=== PATIENT | female | born 2000 | race Caucasian/White ===

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

== ENCOUNTER → 2018-08-10 18:07 | Outpatient (CLI) | payer BC, SELFPAY ==
[2018-08-19 08:53] LABS: Neisseria gonorrhoeae, NAA Negative (Negative)
== END ==
PROVIDERS: Visit Provider Nurse Practitioner Obstetrics & Gynecology
DX: R10.9 Unspecified abdominal pain (principal)
CPT/HCPCS: 87491; 87591

== ENCOUNTER → 2018-08-17 09:23 | Outpatient (CLI) | payer BC, SELFPAY ==
--- NOTE | 2018-08-17 09:26 | US_ITS ---
US transvaginal HISTORY: Pelvic pain ITS.REASON: US T/V -Pelvic pain ORDERING PHYSICIAN: Kory Bah MD PATIENT AGE: 18 years Comparison: None FINDINGS: The uterus is 7 x 3 x 4 cm with a combined endometrial thickness of 6 mm. The uterus has an unremarkable appearance. The left ovary is 5.2 x 2.5 x 3.9 cm and contains a 3.5 x 2.7 cm cyst along with small follicles. The right ovary is 4 x 3 x 2 cm and contains a 1.8 x 1 cm cyst and multiple small follicles. No cul-de-sac fluid evident. There is bilateral ovarian blood flow. IMPRESSION: Polycystic appearance of the right ovary with a 3.5 cm left ovarian cyst and a 1.8 cm right ovarian cyst
== END ==
PROVIDERS: PCP Family Medicine; Visit Provider Nurse Practitioner Obstetrics & Gynecology
DX: R10.2 Pelvic and perineal pain (principal)
CPT/HCPCS: 76830

== ENCOUNTER → 2019-06-28 16:55 | Outpatient (CLI) | payer BC, OTHER, SELFPAY ==
[2019-07-01 11:07] LABS: Neisseria gonorrhoeae, NAA Negative (Negative)
== END ==
PROVIDERS: Visit Provider Nurse Practitioner Obstetrics & Gynecology
DX: Z72.51 High risk heterosexual behavior (principal); N39.0 Urinary tract infection, site not specified
CPT/HCPCS: 87086; 87088; 87186; 87491; 87591

== ENCOUNTER → 2019-07-02 10:18 | Outpatient (CLI) | payer BC, OTHER, SELFPAY ==
--- NOTE | 2019-07-02 10:19 | US_ITS ---
PROCEDURE: US TRANSVAGINAL CLINICAL INDICATION: US T/V- Pelvic Pain, F/U on Ovarian Cyst Pelvic pain COMPARISON: TRANVAG US transvaginal from 08/17/2018 FINDINGS: UTERUS: 6.5 x 2.8 x 3.6 cm with a combined endometrial thickness of 5 mm. Nabothian cysts are present. The uterus is otherwise unremarkable. LEFT OVARY: 4 x 2 cm left ovarian cyst with multiple small follicles with a polycystic appearance of the left ovary. The volume of the left ovary is 17 mL. RIGHT OVARY: 5 x 2 x 2.8 cm with multiple follicles with a polycystic appearance. A septated 17 mm cyst is present in the right ovary. The right ovarian volume is 14 mL No cul-de-sac fluid IMPRESSION: Enlarged polycystic appearing ovaries Dictated by: Bj Guillen MD 07/02/2019 16:45 Electronically signed by Bj Guillen MD in [place] 07/02/2019 16:45
== END ==
PROVIDERS: PCP Family Medicine; Visit Provider Nurse Practitioner Obstetrics & Gynecology
DX: R10.2 Pelvic and perineal pain (principal); N83.209 Unspecified ovarian cyst, unspecified side
CPT/HCPCS: 76830

== ENCOUNTER 2020-05-28 12:50 | Emergency (ER) | payer BC, OTHER, SELFPAY ==
[2020-05-28 13:10] VITALS: BP 117/82; PULSE 82; RESP 19; TEMP 36.7; O2SAT 98; BMI 20.5
--- NOTE | 2020-05-28 13:30 | HMH.EDUTC ---
[facility] [place] Disposition Clinical Impression: Low back pain Qualifiers: Chronicity: unspecified Back pain laterality: bilateral Sciatica presence: unspecified whether sciatica present Qualified Code(s): M54.5 - Low back pain Disposition: Home, Self-Care Condition on Discharge: Good Instructions: Migraine -- Adult, Low Back Pain, DI for Low Back Pain Additional Instructions: *Ibuprofen devora 6 hours with meal as needed for pain/inflammation *Remember you had a Toradol shot in the clinic today, which is similar to Motrin *Not additional anti-inflammatory like motrin, aleve, advil with the above amount of ibuprofen. You can still take Tylenol every 4 hours as needed if you need something else for pain *Ice 20 minutes every 2 hours for the first 48 hours after the initial injury followed by moist heat every 20 minutes 3-4 times a day to affected area Follow up with Family Doctor if symptoms return or no improvement Straight to ER if any life threatening symptoms *Keep this area active, no movement leads to more stiffness, However take it easy and avoid heavy lifting pushing or pulling *Follow up with you family doctor if no improvement for further treatment Referrals: Martínez Olson [Primary Care Provider] - As needed Forms: Work/School Release Time of Disposition: 16:35 Medical Decision Making - Lavelle Inquiry Pt receiving controlled substance: No Lavelle was queried for this patient: No Vital Signs: 05/28/20 13:10 05/28/20 14:06 Temperature 98.1 F 98.1 F Temperature Source Oral Oral Pulse Rate 82 Pulse Rate [Radial] 82 Respiratory Rate 19 19 Blood Pressure 117/82 Blood Pressure [Right Arm] 117/82 Blood Pressure Mean [Right Arm] 93 Blood Pressure Source Automatic Cuff Blood Pressure Source [Right Arm] Automatic Cuff Blood Pressure Position Sitting Blood Pressure Position [Right Arm] Sitting 02 Sat by Pulse Oximetry 98 Oxygen Delivery Method Room Air Room Air - Lab Data Lab results reviewed: Yes: I reviewed the patient's lab results. Orders (Tests/Meds): ED MEDICATIONS Discontinued Medications Generic Name Dose Route Start Last Admin Trade Name Freq PRN Reason Stop Dose Admin Ketorolac Tromethamine 60 mg 05/28/20 13:41 05/28/20 13:47 Ketorolac 60mg/2ml Vial IM 05/28/20 13:42 60 mg ONCE ONE Administration Medical Decision Narrative: Patient reports that pain in lower back and cramping in her sides comes and goes and had migraine this morning Patient states that she is not having any abdominal pain at this time Discussed with patient and recommended that she be transferred to the ED for further work up and possibly CT of abdomen and patient declined States that she will follow up with PCP if symptoms return Patient reports that Torodol injection helped with Back pain and headache [facility] [place] HPI - General Stated complaint: back pain lower abd pain lower Time Seen by Provider: 05/28/20 13:30 Mode of Arrival: Ambulatory Source of Information: Patient Limitations: No Limitations Description of Symptoms (Recalled from Triage Doc. by RN): lower abd and back pain x 3 days (cramping) HEENT Symptoms (Recalled from RN notes): No Resp Symptoms (Recalled from RN notes): No Skin Symptoms (Recalled from RN notes): No MS Symptoms (Recalled from RN notes): No Functional Status (Recalled from RN notes): wnl - History of Present Illness Provider Complaint: Patient states that she has been having some pain in her lower back area that started about 2-3 days ago and at time it wrapped around her sides like a cramping like pain States that this morning she woke up with migraine also and still having some pain in her lower back with no known injury denies loss of control of bowel or bladder and has had migraine since this morning - Related Data Previous Rx's Medication Instructions Recorded norgestimate-ethinyl estradiol 1 tab PO DAILY 30 Days #30 tab 09/13/19 0.18 mg/0.215mg/0.25mg-35 mcg(28)tablet rajan
[2020-05-28 14:06] VITALS: BP 117/82; PULSE 82; RESP 19; TEMP 36.7; O2SAT 98
[2020-05-28 16:35] LABS: Apearance,Urine Clear (Clear); Color,Urine Yellow (Yellow)
[2020-05-28 16:36] LABS: Bilirubin,Urine Negative (Negative); Blood, Urine Negative (Negative); Glucose,Urine (UA) Negative (Negative); Ketones,Urine Negative (Negative); Protein,Urine 1+ (Negative); UTC Leukocyte Esterase,Urine Negative (Negative); UTC Nitrate,Urine Negative (Negative); UTC Pregnancy Test, Urine Negative (Negative); Urobilinogen,Urine 0.2 EU/dl (0.2)
== END 2020-05-28 14:07 | disposition home or self-care (01) ==
PROVIDERS: Emergency Provider Nurse Practitioner; PCP Family Medicine
DX: R10.30 Lower abdominal pain, unspecified (principal); M54.5 Low back pain; G43.909 Migraine, unspecified, not intractable, without status migrainosus; Z90.49 Acquired absence of other specified parts of digestive tract
CPT/HCPCS: 81003; 81025; 96372; 99202

== ENCOUNTER → 2020-07-13 17:08 | Outpatient (CLI) | payer BC, OTHER, SELFPAY ==
[2020-07-13 19:22] LABS: Free Thyroxine Index 1.8 ug/dL (5.93-13.13); T4 (Thyroxine) 5.6 ug/dl (5.53-11.0); Triiodothryronine (T3) Uptake 32 % (23.5-40.5)
[2020-07-13 19:35] LABS: Thyroid Stimulating Hormone 0.88 uIU/mL (0.465-4.68)
[2020-07-15 09:37] LABS: Prolactin 19.5 ng/mL (4.8-23.3)
[2020-07-15 11:00] LABS: FSH 5.5 mIU/mL (.)
[2020-07-15 16:08] LABS: LH 29.8 mIU/mL (.)
== END ==
PROVIDERS: Visit Provider Nurse Practitioner Obstetrics & Gynecology
DX: N92.6 Irregular menstruation, unspecified (principal)
CPT/HCPCS: 36415; 82670; 83001; 83002; 84146; 84436; 84443; 84479

== ENCOUNTER → 2021-08-01 09:19 | Outpatient (CLI) | payer BC, SELFPAY ==
[2021-08-01 09:39] LABS: Influenza A, PCR Not Detected (NotDetected); Influenza B, PCR Not Detected (NotDetected)
[2021-08-01 10:05] LABS: Coronavirus 19, PCR Detected (NotDetected)
== END ==
PROVIDERS: Visit Provider Nurse Practitioner
DX: U07.1 COVID-19 (principal)
CPT/HCPCS: C9803; U0003; U0005

== ENCOUNTER 2021-08-06 20:31 | Emergency (ER) | payer BC, SELFPAY ==
--- NOTE | 2021-08-06 20:48 | XR_ITS ---
PROCEDURE INFORMATION: Exam: XR Chest Exam date and time: 08/06/2021 8:48 PM Age: 21 years old Clinical indication: Dyspnea; Sternal or substernal pain; Additional info: Chest pains TECHNIQUE: Imaging protocol: XR of the chest. Views: 2 views. Total images: 2 COMPARISON: No relevant prior studies available. FINDINGS: Lungs: Normal pulmonary expansion. Pulmonary vasculature grossly normal. No gross pulmonary infiltrates or edema pattern. Pleural spaces: No pleural effusion. No pneumothorax. Heart/Mediastinum: Heart size normal. No tracheal/mediastinal shift. Bones/joints: No acute osseous abnormalities are identified. IMPRESSION: No acute thoracic process.
[2021-08-06 20:57] VITALS: BP 132/86; PULSE 128; RESP 18; TEMP 37; O2SAT 98; BMI 27.3
--- NOTE | 2021-08-06 21:24 | HMH.EDUTC ---
[facility] [place] Clinical Impression: COVID-19, Bronchitis Disposition: Home, Self-Care Condition on Discharge: Good Instructions: DI for COVID-19 (Suspected or Confirmed ), Preventing the Spread of Coronavirus Discharge Instructions Additional Instructions: Drink plenty of fluids. Take tylenol or ibuprofen for pain or fever. Take the medications as directed. Follow up with your regular doctor. GO TO THE ER FOR ANY WORSENING SYMPTOMS The cough medication (promethazine dm) will make you drowsy, so don't drive or operate heavy machinery after taking it. I will call you in the morning with the official read of the chest x-ray and we will proceed from there with further treatment. Prescriptions: Albuterol Sulfate [Albuterol Sulfate Hfa] 2 puffs IH Q6HP PRN 30 Days #1 each PRN Reason: Shortness Of Breath Transmission Status: Received by [id number] Promethazine/Dextromethorphan [Promethazine-Dm Syrup] 5 ml PO Q6HP PRN #240 ml PRN Reason: Cough Transmission Status: Received by [facility] Ondansetron [Zofran 4mg ODT] 4 mg PO Q8HP PRN #20 tab PRN Reason: Nausea Transmission Status: Received by [facility] dexAMETHasone [Decadron] 6 mg PO DAILY 6 Days #6 tab Transmission Status: Received by [facility] Referrals: Martínez Olson [Primary Care Provider] - Time of Disposition: 21:59 Medical Decision Making - Medical Records Medical records reviewed: No: I reviewed the patient's medical records. - Lavelle Inquiry Pt receiving controlled substance: No Vital Signs: 08/06/21 20:57 08/06/21 21:51 Temperature 98.6 F 98.6 F Temperature Source Oral Pulse Rate 128 H Pulse Rate [Left] 128 H Respiratory Rate 18 18 Blood Pressure 132/86 Blood Pressure [Right Arm] 132/86 Blood Pressure Mean [Right Arm] 101 02 Sat by Pulse Oximetry 98 Orders (Tests/Meds): ORDERS Category Date Time Status Chest XR 2 view (NOT portable) [XR chest 2V] Stat Exams 08/06/21 20:48 Taken [facility] [place] - General Stated complaint: covid + sob Time Seen by Provider: 08/06/21 21:25 Mode of Arrival: Ambulatory Source of Information: Patient Limitations: No Limitations Description of Symptoms (Recalled from Triage Doc. by RN): pt tested positive for covid on 08/01. pt c/o a cough and lung tightness. HEENT Symptoms (Recalled from RN notes): No Resp Symptoms (Recalled from RN notes): Yes (cough and tightness in lungs) Skin Symptoms (Recalled from RN notes): No MS Symptoms (Recalled from RN notes): No Functional Status (Recalled from RN notes): wnl - History of Present Illness Provider Complaint: She started having symptoms and was diagnosed with Covid-19 on 08/01. She states that instead of getting better she has began to have more chest tightness and a worsening cough. She has not been running a fever over the past couple of days, but she continues to have body aches. - Related Data Home Medications Medication Instructions Recorded Confirmed diclofenac sodium 75 mg 75 mg PO BID tab 01/11/21 06/08/21 tablet,delayed release metformin 500 mg tablet,extended tab PO 01/11/21 06/08/21 release 24 hr metformin 750 mg tablet,extended 750 mg PO DAILY tab 06/08/21 06/08/21 release 24 hr omeprazole 40 mg capsule,delayed 40 mg PO cap 06/08/21 06/08/21 release Previous Rx's Medication Instructions Recorded Albuterol Sulfate [Albuterol 2 puffs IH Q6HP PRN 30 Days #1 each 08/06/21 Sulfate Hfa] Ondansetron [Zofran 4mg ODT] 4 mg PO Q8HP PRN #20 tab 08/06/21 Promethazine/Dextromethorphan 5 ml PO Q6HP PRN #240 ml 08/06/21 [Promethazine-Dm Syrup] dexAMETHasone [Decadron] 6 mg PO DAILY 6 Days #6 tab 08/06/21 Allergies Allergy/AdvReac Type Severity Reaction Status Date / Time No Known Allergies Allergy Verified 06/08/21 14:37 - Worker's Comp Is this a Worker's Comp case?: No [place] History - Hepatitis A Screen Drug use history?: No
[2021-08-06 21:51] VITALS: BP 132/86; PULSE 128; RESP 18; TEMP 37
== END 2021-08-06 22:02 | disposition home or self-care (01) ==
PROVIDERS: Emergency Provider Nurse Practitioner Family; PCP Family Medicine
DX: U07.1 COVID-19 (principal); J20.9 Acute bronchitis, unspecified
CPT/HCPCS: 71046; 99202; G0463

== ENCOUNTER 2021-08-19 15:58 | Emergency (ER) | payer BC, SELFPAY ==
[2021-08-19 17:30] VITALS: BP 122/84; PULSE 107; RESP 20; TEMP 36.8; O2SAT 98; BMI 28.4
[2021-08-19 17:51] LABS: UTC Strep Screen (Rapid) Negative (Negative)
--- NOTE | 2021-08-19 18:03 | HMH.EDUTC ---
[facility] [place] Disposition Clinical Impression: Shortness of breath Disposition: Still a Patient Condition on Discharge: Good Referrals: Martínez Olson [Primary Care Provider] - Time of Disposition: 18:08 Medical Decision Making - Lavelle Inquiry Pt receiving controlled substance: No Vital Signs: 08/19/21 17:30 Temperature 98.3 F Temperature Source Oral Pulse Rate [Right Brachial] 107 H Respiratory Rate 20 Blood Pressure [Right Arm] 122/84 Blood Pressure Mean [Right Arm] 96 Blood Pressure Source [Right Arm] Automatic Cuff Blood Pressure Position [Right Arm] Sitting 02 Sat by Pulse Oximetry 98 Oxygen Delivery Method Room Air - Lab Data Lab Results 08/19/21 17:35: Strep Scn Rapid Clinic Negative Orders (Tests/Meds): ORDERS Category Date Time Status Strep Screen Confirmation Stat Micro 08/19/21 17:35 Received [facility] [place] HPI - General Chief complaint: [facility] Stated complaint: sore throat, cough, congestion Time Seen by Provider: 08/19/21 18:03 Mode of Arrival: Ambulatory Source of Information: Patient Limitations: No Limitations Description of Symptoms (Recalled from Triage Doc. by RN): PATIENT C/O PRODUCTIVE COUGH AND CHEST CONGESTION. REPORTS SHE WAS DIAGNOSED WITH COVID ON 08/01 AND TREATED FOR BRONCHITIS ON 08/06 HEENT Symptoms (Recalled from RN notes): No Resp Symptoms (Recalled from RN notes): Yes Skin Symptoms (Recalled from RN notes): No MS Symptoms (Recalled from RN notes): No Functional Status (Recalled from RN notes): WNL - History of Present Illness Provider Complaint: 21 yr old female presents for COUGH AND CHEST CONGESTION. REPORTS SHE WAS DIAGNOSED WITH COVID ON 08/01 AND TREATED FOR BRONCHITIS ON 08/06. pt states she went back to work on the . pt states since friday her soa has increased and she is having difficulty cleaning house without having to stop to catch her breath and feels she cant get a deep breath in. - Related Data Home Medications Medication Instructions Recorded Confirmed diclofenac sodium 75 mg 75 mg PO BID tab 01/11/21 06/08/21 tablet,delayed release metformin 500 mg tablet,extended tab PO 01/11/21 06/08/21 release 24 hr metformin 750 mg tablet,extended 750 mg PO DAILY tab 06/08/21 06/08/21 release 24 hr omeprazole 40 mg capsule,delayed 40 mg PO cap 06/08/21 06/08/21 release Previous Rx's Medication Instructions Recorded Albuterol Sulfate [Albuterol 2 puffs IH Q6HP PRN 30 Days #1 each 08/06/21 Sulfate Hfa] Ondansetron [Zofran 4mg ODT] 4 mg PO Q8HP PRN #20 tab 08/06/21 Promethazine/Dextromethorphan 5 ml PO Q6HP PRN #240 ml 08/06/21 [Promethazine-Dm Syrup] dexAMETHasone [Decadron] 6 mg PO DAILY 6 Days #6 tab 08/06/21 Allergies Allergy/AdvReac Type Severity Reaction Status Date / Time No Known Allergies Allergy Verified 06/08/21 14:37 - Worker's Comp Is this a Worker's Comp case?: No [facility] History - Hepatitis A Screen Drug use history?: No High risk sexual behaviors?: No History of sexually transmitted infection?: No Currently employed?: No Childcare worker?: No Do you have indoor plumbing?: Yes Do you have electricity?: Yes Attestation statement:: This patient has been screened for Hepatitis A risk factors. I have reviewed the patient's past medical history: Yes Laterality Cases: Bilateral: Tonsillectomy Other Surgeries: Yes: Appendectomy, Cholecystectomy Amputation: No Fractures: Yes (foot) Comment: - Social History Smoking Status: Never smoker Alcohol Intake: never Substance Use Type: denies use Occupational Status: employed Housing: house Household Members: family Family Hx:: Non-contributory ROS Obtained: Yes Systems reviewed as appropriate & no additional complaints - Constitutional Constitutional: Reports system reviewed and no additional complaints, except as Samantha carter fever(s) - Eyes Eyes: Reports system reviewed and no additional complaints, except as Wade carter
--- NOTE | 2021-08-19 18:09 | PC.NURSE ---
PATIENT SENT TO ER PER Waqas BLAS APRN FOR FURTHER EVALUATION. REPORT GIVEN TO Kel ORNELAS RN BY Waqas BLAS APRN
[2021-08-19 18:12] VITALS: BP 130/85; PULSE 98; RESP 18; TEMP 36.8; O2SAT 97; BMI 28.1
[2021-08-19 18:49] LABS: Basophils # 0.1 K/mm3 (0-0.2); Basophils % 1.8 % (0.1-2.0); Eosinophils % 0.5 % (0.1-12.0); Hematocrit 44.2 % (37.0-47.0); Hemoglobin 14.5 g/dL (12.2-16.2); Lymphocytes # 0.9 K/mm3 (0.7-4.5); Lymphocytes % 15.5 % (10-50); Mean Corpuscular HGB Conc 32.7 g/dL (31.8-35.4); Mean Corpuscular Hemoglobin 30.6 pg (27.0-31.2); Mean Corpuscular Volume 93.5 fl (81-99); Mean Platelet Volume 8.2 fl (7.4-10.4); Monocytes # 0.4 K/mm3 (0.1-1.0); Monocytes % 6.3 % (1.7-9.3); Neutrophils # 4.3 K/mm3 (1.8-7.8); Neutrophils % 75.8 % (37.0-80.0); Platelet Count 320 K/mm3 (142-424); Red Blood Count 4.73 M/mm3 (4.20-5.40); Red Cell Distribution Width 12.4 % (11.5-17.5); White Blood Count 5.6 K/mm3 (4.8-10.8)
[2021-08-19 18:59] LABS: Alanine Aminotransferase 187 U/L (12-78); Albumin Level 4.5 g/dl (3.5-5.0); Albumin/Globulin Ratio 1.6 (1.1-1.8); Alkaline Phosphatase 90 U/L (38-126); Anion Gap 8.8 mEq/L (5-15); Aspartate Amino Transferase 152 U/L (14-36); Bilirubin,Total 1.2 mg/dl (0.2-1.3); Blood Urea Nitrogen 6 mg/dl (7-17); Calcium 9.7 mg/dl (8.4-10.2); Carbon Dioxide 31 mmol/L (22.0-30.0); Chloride 99 mmol/L (98-107); Creatinine Clearance Estimated 161 mL/min (50-200); Estimated Glomerular Filt Rate 104 ml/min (>60); GFR (African American) 125 ML/MIN (>60); Globulin 2.8 g/dL (1.3-3.2); Glucose 97 mg/dl (74-100); Potassium 3.8 mmoL/L (3.5-5.1); Sodium 135 mmol/L (136-145); Total Protein,Serum 7.3 g/dl (6.3-8.2)
[2021-08-19 19:00] LABS: HCG Qualitative, Serum Negative (Negative)
[2021-08-19 19:04] LABS: D-Dimer 0.62 ug/mL (0.0-0.5)
--- NOTE | 2021-08-19 19:11 | XR_ITS ---
PROCEDURE INFORMATION: Exam: XR Chest Exam date and time: 08/19/2021 7:11 PM Age: 21 years old Clinical indication: Cough and shortness of breath; Patient HX: Cough, congestion, shortness of breath, covid positive. D-dimer .63. Cat scan of chest for pe also done. TECHNIQUE: Imaging protocol: XR of the chest. Views: 1 view. COMPARISON: CR XR CHEST 2V 08/06/2021 8:47 PM FINDINGS: Lungs: Subtle ground-glass pulmonary opacities. No lobar consolidation. Pleural spaces: No pneumothorax. Heart/Mediastinum: No cardiomegaly. Bones/joints: No acute abnormality. IMPRESSION: Subtle ground-glass pulmonary opacities better evaluated on chest CT from same date which are nonspecific but would be compatible with the provided history of covid.
--- NOTE | 2021-08-19 19:18 | CT_ITS ---
PROCEDURE INFORMATION: Exam: CTA Chest With Contrast Exam date and time: 08/19/2021 7:18 PM Age: 21 years old Clinical indication: Cough and shortness of breath; Patient HX: Cough, congestion, shortness of breath, covid positive. D-dimer .63 which is elevated per our lab. ; Additional info: Elevated d dimer TECHNIQUE: Imaging protocol: Computed tomographic angiography of the chest with contrast. 3D rendering (Not supervised by radiologist): MIP and/or 3D reconstructed images were created by the technologist. Radiation optimization: All CT scans at this facility use at least one of these dose optimization techniques: automated exposure control; mA and/or kV adjustment per patient size (includes targeted exams where dose is matched to clinical indication); or iterative reconstruction. Contrast material: ISOVUE 370; Contrast volume: 70 ml; Contrast route: INTRAVENOUS (IV); COMPARISON: CR XR CHEST PORTABLE 08/19/2021 7:19 PM FINDINGS: Pulmonary arteries: Normal. No pulmonary emboli. Aorta: No aortic aneurysm. No aortic dissection. Lungs: Multifocal bilateral ground-glass pulmonary opacities. No lobar consolidation. Pleural spaces: No pneumothorax. No pleural effusion. Heart: No cardiomegaly. No pericardial effusion. Lymph nodes: No enlarged lymph nodes. Bones/joints: No acute fracture. Soft tissues: No significant swelling. IMPRESSION: Multifocal bilateral ground-glass pulmonary opacities which are nonspecific but likely infectious or inflammatory and would be compatible with the provided history of covid. PROCEDURE INFORMATION: Exam: CT Angiography Abdomen With Contrast Exam date and time: 08/19/2021 7:18 PM Age: 21 years old Clinical indication: Cough and shortness of breath; Patient HX: Cough, congestion, shortness of breath, covid positive. D-dimer .63 which is elevated per our lab. ; Additional info: Elevated d dimer TECHNIQUE: Imaging protocol: Computed tomographic angiography images of the abdomen with intravenous contrast material. 3D rendering (Not supervised by radiologist): MIP and/or 3D reconstructed images were created and reviewed. COMPARISON: CR XR CHEST PORTABLE 08/19/2021 7:19 PM FINDINGS: Aorta: No aortic aneurysm. No aortic dissection. Celiac trunk and mesenteric arteries: No occlusion or significant stenosis. Renal arteries: No occlusion or significant stenosis. Liver: Normal. No mass. Gallbladder and bile ducts: Normal. No calcified stones. No ductal dilation. Pancreas: Normal. No ductal dilation. Spleen: Normal. No splenomegaly. Adrenals: Normal. No mass. Kidneys and ureters: Normal. No hydronephrosis. Stomach and bowel: Unremarkable. No obstruction. No mucosal thickening. Lymph nodes: Unremarkable. No enlarged lymph nodes. Intraperitoneal space: Unremarkable. No free air. No significant fluid collection. Bones/joints: Unremarkable. No acute fracture. No dislocation. Soft tissues: Unremarkable. IMPRESSION: Unremarkable CTA abdomen.
--- NOTE | 2021-08-19 19:48 | HMH.EDGENADL ---
ED Disposition Condition on Discharge: Good - Critical Care Critical Care Time: No <Tony Jeffers Handy - Last Filed: 08/19/21 20:36> Condition on Discharge: Good - Critical Care Critical Care Time: No <Roberth Hernandez - Last Filed: 09/22/21 16:39> Clinical Impression: Shortness of breath Disposition: Home, Self-Care Instructions: DI for COVID-19 (Suspected or Confirmed ) Additional Instructions: call pcp for follow up Referrals: Martínez Olson [Primary Care Provider] - Attestation: On 08/19/21, the high probability of a clinically significant, sudden or life threatening deterioration of the following system(s) required my full and direct attention, intervention and personal management. The time I documented below is in addition to time spent performing reported procedures but includes the following listed in this critical care notation. Medical Decision Making - Lab Data Result diagrams: 08/19/21 18:37 08/19/21 18:37 - Radiology Data #1 Image(s): Chest Image Reviewed: Yes I have reviewed radiologist's interpretation Preliminary Findings: Abnormal - CT Data CT Scan: Chest Time Received: 20:[address] Reviewed: Yes: I have viewed the radiologist's interpretation Preliminary Findings: Normal/NAD (no pul emboli) <Tony Jeffers Handy - Last Filed: 08/19/21 20:36> - Medical Records Medical records reviewed: Yes: I reviewed the patient's medical records. - Lavelle Inquiry Pt receiving controlled substance: No Lavelle was queried for this patient: No - Lab Data Lab results reviewed: Yes: I reviewed the patient's lab results. Result diagrams: 08/19/21 18:37 08/19/21 18:37 <Roberth Hernandez - Last Filed: 09/22/21 16:39> Vital Signs: 08/19/21 17:30 08/19/21 18:12 08/19/21 21:10 Temperature 98.3 F 98.2 F 98.7 F Temperature Source Oral Oral Oral Pulse Rate 106 H Pulse Rate [Right Brachial] 107 H 98 H Respiratory Rate 20 18 17 Blood Pressure 133/80 Blood Pressure [Right Arm] 122/84 130/85 Blood Pressure Mean [Right Arm] 96 100 Blood Pressure Source [Right Arm] Automatic Cuff Manual Cuff/ Doppler Blood Pressure Position [Right Arm] Sitting Supine 02 Sat by Pulse Oximetry 98 97 Oxygen Delivery Method Room Air Room Air Room Air - Lab Data Lab Results 08/19/21 17:35: Strep Scn Rapid Clinic Negative 08/19/21 18:37: WBC 5.6, RBC 4.73, Hgb 14.5, Hct 44.2, MCV 93.5, MCH 30.6, MCHC 32.7, RDW 12.4, Plt Count 320, MPV 8.2, Neut % (Auto) 75.8, Lymph % (Auto) 15.5, Lake % (Auto) 6.3, Eos % (Auto) 0.5, Baso % (Auto) 1.8, Neut # (Auto) 4.3, Lymph # (Auto) 0.9, Lake # (Auto) 0.4, Eos # (Auto) 0.0, Baso # (Auto) 0.1 08/19/21 18:37: D-Dimer 0.62 H 08/19/21 18:37: Sodium 135 L, Potassium 3.8, Chloride 99, Carbon Dioxide 31 H, Anion Gap 8.8, BUN 6 L, Creatinine 0.70, Estimated Creat Clear 161, Estimated GFR 104, Est GFR ( Amer) 125, Glucose 97, Calcium 9.7, Total Bilirubin 1.2, AST 152 H, ALT 187 H, Alkaline Phosphatase 90, Total Protein 7.3, Albumin 4.5, Globulin 2.8, Albumin/Globulin Ratio 1.6 08/19/21 18:37: Serum HCG, Qual Negative Orders (Tests/Meds): ED MEDICATIONS Discontinued Medications Generic Name Dose Route Start Last Admin Trade Name Edgard PRN Reason Stop Dose Admin Lactated Ringer's 1,000 mls @ 999 mls/hr 08/19/21 19:30 08/19/21 19:22 Lactated Ringer's 1000 Ml Bag IV 08/19/21 20:30 999 mls/hr .Q1H1M PRAKASH Administration Iopamidol 70 ml 08/19/21 19:52 08/19/21 19:57 Iopamidol-370 (76%);100ml Bottle IV 08/19/21 19:53 70 ml ONCE ONE Administration Sodium Chloride 50 ml 08/19/21 19:52 08/19/21 19:57 0.9 % Sodium Chloride 50 Ml Vial IV 08/19/21 19:53 50 ml ONCE ONE Administration Sodium Chloride 10 ml 08/19/21 19:52 08/19/21 19:57 Sodium Chloride 0.9% 10ml Syr (Rad Only) IV 08/19/21 19:53 10 ml ONCE ONE Administration Medical Decision Narrative: Patient is a 21-year-old female with past medical history of Covid presentin
[2021-08-19 21:10] VITALS: BP 133/80; PULSE 106; RESP 17; TEMP 37.1; O2SAT 98
== END 2021-08-19 21:36 | disposition home or self-care (01) ==
LOC: UTC 16:03 → ER 18:07
PROVIDERS: Nurse Practitioner Family; Emergency Provider Emergency Medicine; PCP Family Medicine
DX: U07.1 COVID-19 (principal)
CPT/HCPCS: 71045; 71275; 80053; 84703; 85025; 85378; 87880; 96365; 99283; Q9967

== ENCOUNTER 2021-09-02 09:21 | Emergency (ER) | payer BC, SELFPAY ==
[2021-09-02 09:25] VITALS: BP 136/76; PULSE 86; RESP 19; TEMP 36.9; O2SAT 97; BMI 28.1
--- NOTE | 2021-09-02 10:17 | HMH.EDUTC ---
[facility] [place] Clinical Impression: Paronychia Disposition: Home, Self-Care Condition on Discharge: Good Instructions: Paronychia Additional Instructions: warm soaks follow up with pcp antibiotics as ordered retun if symptoms worsen or do not improve Prescriptions: cephALEXin [Cephalexin 500mg Tab] 500 mg PO BID 7 Days #14 tab Transmission Status: Pending to [id number] Referrals: Martínez Olson [Primary Care Provider] - Time of Disposition: 10:29 Medical Decision Making - Lavelle Inquiry Pt receiving controlled substance: No Vital Signs: 09/02/21 09:25 Temperature 98.4 F Temperature Source Oral Pulse Rate [Right Brachial] 86 Respiratory Rate 19 Blood Pressure [Right Arm] 136/76 Blood Pressure Mean [Right Arm] 96 Blood Pressure Source [Right Arm] Automatic Cuff Blood Pressure Position [Right Arm] Sitting 02 Sat by Pulse Oximetry 97 Oxygen Delivery Method Room Air [facility] [place] HPI - General Chief complaint: Urgent Treatment Center Stated complaint: possible left thumb infection Time Seen by Provider: 09/02/21 10:17 Mode of Arrival: Ambulatory Source of Information: Patient Limitations: No Limitations Description of Symptoms (Recalled from Triage Doc. by RN): PATIENT C/O POSSIBLE INFECTED THUMB X 1 WEEK HEENT Symptoms (Recalled from RN notes): No Resp Symptoms (Recalled from RN notes): No Skin Symptoms (Recalled from RN notes): Yes MS Symptoms (Recalled from RN notes): No Functional Status (Recalled from RN notes): WNL - History of Present Illness Provider Complaint: 21 yr old male presents for infection to left thumb for 1 week - Related Data Home Medications Medication Instructions Recorded Confirmed metformin 750 mg tablet,extended 750 mg PO DAILY tab 06/08/21 09/02/21 release 24 hr Spironolactone [Aldactone 50mg 50 mg PO DAILY 09/02/21 09/02/21 Tab] Previous Rx's Medication Instructions Recorded cephALEXin [Cephalexin 500mg Tab] 500 mg PO BID 7 Days #14 tab 09/02/21 Allergies Allergy/AdvReac Type Severity Reaction Status Date / Time No Known Allergies Allergy Verified 06/08/21 14:37 - Worker's Comp Is this a Worker's Comp case?: No [facility] History - Hepatitis A Screen Drug use history?: No High risk sexual behaviors?: No History of sexually transmitted infection?: No Currently employed?: No Childcare worker?: No Do you have indoor plumbing?: Yes Do you have electricity?: Yes Attestation statement:: This patient has been screened for Hepatitis A risk factors. I have reviewed the patient's past medical history: Yes Laterality Cases: Bilateral: Tonsillectomy Other Surgeries: Yes: Appendectomy, Cholecystectomy Amputation: No Fractures: Yes (foot) Comment: - Social History Smoking Status: Never smoker Alcohol Intake: never Substance Use Type: denies use Occupational Status: employed Housing: house Household Members: family Family Hx:: Non-contributory ROS Obtained: Yes Systems reviewed as appropriate & no additional complaints - Constitutional Constitutional: Reports system reviewed and no additional complaints, except as docu, Denies chills, Denies fever(s) - Eyes Eyes: Reports system reviewed and no additional complaints, except as docu, Denies blurry vision - ENT Ears, Nose, Mouth, and Throat: Reports system reviewed and no additional complaints, except as docu, Denies dizziness - Cardiovascular Cardiovascular: Reports system reviewed and no additional complaints, except as docu, Denies chest pain - Respiratory Respiratory: Reports system reviewed and no additional complaints, except as docu, Denies cough - Gastrointestinal Gastrointestingal: Reports: system reviewed and no additional complaints, except as docu. Denies: abdominal pain - Musculoskeletal Musculoskeletal: Reports system reviewed and no additional complaints, except as docu, Denies joint pain - Integumentary/Breasts Skin/Breast: Reports system reviewed and n
[2021-09-02 10:27] VITALS: BP 136/76; PULSE 86; RESP 19; TEMP 36.9; O2SAT 97
== END 2021-09-02 10:33 | disposition home or self-care (01) ==
PROVIDERS: Emergency Provider Nurse Practitioner Family; PCP Family Medicine
DX: L03.012 Cellulitis of left finger (principal)
CPT/HCPCS: 99202; G0463

== ENCOUNTER 2022-03-30 15:52 | Emergency (ER) | payer BC, SELFPAY ==
[2022-03-30 15:55] VITALS: BP 140/86; PULSE 89; RESP 18; TEMP 36.6; O2SAT 98; BMI 29.8
--- NOTE | 2022-03-30 16:08 | HMH.EDUTC ---
[facility] [place] Disposition Clinical Impression: Abscess or cellulitis of cheek Disposition: Home, Self-Care Condition on Discharge: Good Instructions: DI for Cellulitis -- Adult Additional Instructions: antibiotics as ordered if symptoms worsen or no improvement return or be seen in ed follow up with pcp Prescriptions: Sulfamethoxazole/Trimethoprim [Bactrim DS tablet] 1 each PO BID 10 Days #20 tab Transmission Status: Pending [facility] Mupirocin [Bactroban 2% Ointment 22gm tube] 1 applicatio TP BID 7 Days #22 gm Transmission Status: Pending to [facility] cephALEXin [Cephalexin 500mg Tab] 500 mg PO BID 10 Days #20 tab Transmission Status: Pending to [facility] Referrals: Martínez Olson [Primary Care Provider] - Time of Disposition: 16:19 Medical Decision Making - Lavelle Inquiry Pt receiving controlled substance: No Vital Signs: 03/30/22 15:55 Temperature 97.8 F Temperature Source Oral Pulse Rate [Left Brachial] 89 Respiratory Rate 18 Blood Pressure [Left Arm] 140/86 Blood Pressure Mean [Left Arm] 104 Blood Pressure Source [Left Arm] Automatic Cuff Blood Pressure Position [Left Arm] Sitting 02 Sat by Pulse Oximetry 98 Oxygen Delivery Method Room Air [facility] [place] HPI - General Chief complaint: Urgent Treatment Center Stated complaint: facial swelling Time Seen by Provider: 03/30/22 16:11 Mode of Arrival: Ambulatory Source of Information: Patient Limitations: No Limitations Description of Symptoms (Recalled from Triage Doc. by RN): PATIENT C/O SWELLING TO RIGHT SIDE OF FACE SINCE YESTERDAY HEENT Symptoms (Recalled from RN notes): Yes Resp Symptoms (Recalled from RN notes): No Skin Symptoms (Recalled from RN notes): No MS Symptoms (Recalled from RN notes): No Functional Status (Recalled from RN notes): WNL - History of Present Illness Provider Complaint: 21 yr old female presnets for swelling to rt side of the face. pt states she had a pimple on her cheek and she sqeezed it and woke up this am with facial swelling and redness - Related Data Home Medications Medication Instructions Recorded Confirmed metformin 750 mg tablet,extended 750 mg PO DAILY tab 06/08/21 09/02/21 release 24 hr Spironolactone [Aldactone 50mg 50 mg PO DAILY 01/09/22 01/09/22 Tab] Previous Rx's Medication Instructions Recorded cephALEXin [Cephalexin 500mg Tab] 500 mg PO BID 7 Days #14 tab 09/02/21 Mupirocin [Bactroban 2% Ointment 1 applicatio TP BID 7 Days #22 gm 03/30/22 22gm tube] Sulfamethoxazole/Trimethoprim 1 each PO BID 10 Days #20 tab 03/30/22 [Bactrim DS tablet] cephALEXin [Cephalexin 500mg Tab] 500 mg PO BID 10 Days #20 tab 03/30/22 Allergies Allergy/AdvReac Type Severity Reaction Status Date / Time No Known Allergies Allergy Verified 06/08/21 14:37 - Worker's Comp Is this a Worker's Comp case?: No [facility] History - Hepatitis A Screen Attestation statement:: This patient has been screened for Hepatitis A risk factors. I have reviewed the patient's past medical history: Yes Laterality Cases: Bilateral: Tonsillectomy Other Surgeries: Yes: Appendectomy, Cholecystectomy Amputation: No Fractures: Yes (foot) Comment: - Social History Smoking Status: Never smoker Alcohol Intake: never Substance Use Type: denies use Occupational Status: employed Housing: house Household Members: family Family Hx:: Non-contributory ROS Obtained: Yes Systems reviewed as appropriate & no additional complaints - Constitutional Constitutional: Reports system reviewed and no additional complaints, except as docu, Denies fever(s) - Eyes Eyes: Reports system reviewed and no additional complaints, except as docu, Denies dry eyes - ENT Ears, Nose, Mouth, and Throat: Reports system reviewed and no additional complaints, except as docu, Reports as per HPI, Denies sore throat - Cardiovascular Cardiovascular: Reports system reviewed and no additional complaints, except a
[2022-03-30 16:13] VITALS: BP 140/86; PULSE 89; RESP 18; TEMP 36.6; O2SAT 98
== END 2022-03-30 16:34 | disposition home or self-care (01) ==
PROVIDERS: Emergency Provider Nurse Practitioner Family; PCP Family Medicine
DX: R22.0 Localized swelling, mass and lump, head (principal); Z79.84 Long term (current) use of oral hypoglycemic drugs; Z79.899 Other long term (current) drug therapy
CPT/HCPCS: 99213; G0463

== ENCOUNTER → 2022-07-10 14:04 | Outpatient (CLI) | payer BC, SELFPAY ==
--- NOTE | 2022-07-10 14:18 | US_ITS ---
FINAL REPORT CLINICAL HISTORY: pelvic pain FINDINGS: Transvaginal sonographic images of the pelvis were obtained. The uterus measures 8.3 x 3.1 x 3.7 cm. The myometrium is homogeneous. The endometrium measures 1 cm in thickness. The left ovary is unremarkable measuring 3.9 x 3.5 x 1.7 cm. The right ovary measures 9.1 x 6.7 x 5.2 cm. There is a complex septated cystic mass of the right ovary measuring 7.9 x 4.6 cm, indeterminate. IMPRESSION: Indeterminate complex cystic mass in the right ovary, may be physiologic. Recommend follow-up in 6 to 10 weeks. In addition, gynecologic evaluation is recommended. Reviewed, Interpreted and Dictated by Dakota Harrington MD Transcribed by Urszula Preston Authenticated and [facility]
== END ==
PROVIDERS: PCP Family Medicine; Visit Provider Nurse Practitioner Obstetrics & Gynecology
DX: R10.2 Pelvic and perineal pain (principal)
CPT/HCPCS: 76830

== ENCOUNTER → 2022-07-12 08:53 | Outpatient (CLI) | payer BC, SELFPAY ==
[2022-07-12 09:31] LABS: Basophils # 0.1 K/mm3 (0-0.2); Basophils % 1.1 % (0.1-2.0); Eosinophils # 0.1 K/mm3 (0.0-0.4); Eosinophils % 1.3 % (0.1-12.0); Hematocrit 45.9 % (37.0-47.0); Hemoglobin 15.3 g/dL (12.2-16.2); Lymphocytes # 1.5 K/mm3 (0.7-4.5); Lymphocytes % 30.6 % (10-50); Mean Corpuscular HGB Conc 33.4 g/dL (31.8-35.4); Mean Corpuscular Hemoglobin 30.4 pg (27.0-31.2); Monocytes # 0.1 K/mm3 (0.1-1.0); Monocytes % 2.8 % (1.7-9.3); Neutrophils # 3.2 K/mm3 (1.8-7.8); Neutrophils % 64.2 % (37.0-80.0); Platelet Count 234 K/mm3 (142-424); Red Blood Count 5.05 M/mm3 (4.20-5.40); Red Cell Distribution Width 12.8 % (11.5-17.5)
[2022-07-12 10:36] LABS: Alanine Aminotransferase 13 U/L (12-78); Albumin Level 4.6 g/dl (3.5-5.0); Albumin/Globulin Ratio 1.8 (1.1-1.8); Alkaline Phosphatase 69 U/L (38-126); Anion Gap 15.4 mEq/L (5-15); Aspartate Amino Transferase 19 U/L (14-36); Bilirubin,Total 0.8 mg/dl (0.2-1.3); Blood Urea Nitrogen 11 mg/dl (7-17); Calcium 9.9 mg/dl (8.4-10.2); Carbon Dioxide 28 mmol/L (22.0-30.0); Chloride 103 mmol/L (98-107); Estimated Glomerular Filt Rate 103 ml/min (>60); GFR (African American) 124 ML/MIN (>60); Globulin 2.6 g/dL (1.3-3.2); Glucose 93 mg/dl (74-100); Potassium 4.4 mmoL/L (3.5-5.1); Sodium 142 mmol/L (136-145); Total Protein,Serum 7.2 g/dl (6.3-8.2)
[2022-07-12 10:58] LABS: HCG,Quantitative < 2 mIU/ml (0-5.42)
== END ==
PROVIDERS: PCP Family Medicine; Visit Provider Nurse Practitioner Obstetrics & Gynecology
DX: N83.209 Unspecified ovarian cyst, unspecified side (principal)
CPT/HCPCS: 36415; 80053; 84702; 85025

== ENCOUNTER 2022-07-17 07:13 | Day surgery (SDC) | payer BC, SELFPAY ==
[2022-07-15 11:44] VITALS: BMI 28.1
[2022-07-17] VITALS (12 sets, daily range): BP systolic 108–140; BP diastolic 64–85; PULSE 75–99; RESP 16–20; TEMP 6.1–43; O2SAT 96–100
--- NOTE | 2022-07-17 07:50 | P.PN_ITS ---
PFSH PFSH Medical History Eczema History of COVID-19 History of gastroesophageal reflux (GERD) PCOS (polycystic ovarian syndrome) Urinary tract infection Surgical History History of appendectomy History of cholecystectomy History of tonsillectomy Family History Father Family history of diabetes mellitus type II Other Family history of Alzheimer's disease Social History Smoking Status: Former smoker alcohol intake: current substance use type: denies use current occupational status: employed Travel in the last 8 weeks: None household members: family housing: house do you feel safe at home: Yes victim of physical abuse: No victim of emotional abuse: No victim of sexual abuse: No would you like helpful sources: No [facility] Anesthesia Checklist Patient Identification Patient Identification: Arm Band and Verbal (Name & ) Structural Data Admitted From: Home Planned Operative Procedure/s: Dx. laparoscopy Consent for Planned Operative Procedure(s) Verified: Yes NPO Status Verified Time NPO: 00:00 Chart Verification Results Verified: CBC and BMP Additional verifications Anesthesia Reactions: No Hx Blood Transfusions: No Blood Transfusion Reaction: No Airway Assessment C-Spine Mobility Assessed: Yes TMJ Mobility Assessed: Yes Dentition: Good Dentition Neurological Assessment Level of Consciousness: Awake Hx Seizures: No Numbness or tingling in extremities: No Anesthesia Plan Anesthesia Risk discussed: Yes Anesthesia Plan: Verified ASA Class: I Anesthesia Type: General
[2022-07-17 08:00] LABS: Urine Pregnancy, HCG Qual. Negative (Negative)
--- NOTE | 2022-07-17 10:09 | EXP.OP.NOTE ---
Date of procedure: 07/17/22 Pre-op Diagnosis:: Pelvic pain and right ovarian cyst Post-op Diagnosis:: Pelvic pain and right ovarian cyst Procedure performed:: Laparoscopic right ovarian cystectomy Surgeon:: Kory Bah MD TRIBAL DELEGATE:: Other (Anibal Tolliver) Anesthesia: GETA Estimated blood loss (mL): 100 Clinical Note:: She is a 22-year-old 0 para 0 who complains of lower abdominal pain. An ultrasound showed that she had a 10 cm ovarian cyst. Since she was having discomfort we elected perform a laparoscopic ovarian cystectomy. The risks and benefits of surgery were discussed the patient prior to surgery. Operative findings:: She had a 10 cm right ovarian cyst that was filled with clear straw-colored fluid. There was no evidence of endometriosis in the pelvis. The ovaries appeared normal. The left ovary appeared normal. The deep pelvis was normal. Tubes were followed to their fimbriated end and appeared normal. The upper abdomen appeared normal. Operative note:: She was taken the operating room where general anesthesia was found to be adequate. She is prepped draped normal sterile fashion in the semilithotomy position. A weighted speculum is placed in the vagina and the anterior lip of the cervix was grasped with a tenaculum. I then dilated the cervix to approximately 4 mm. I then inserted a Hortencia uterine manipulator and insufflated the balloon. I changed gloves and then injected 10 cc of ropivacaine around the umbilicus and made a small incision within the umbilicus. I then inserted a Veress needle into the abdominal cavity. The abdominal cavity was then insufflated with carbon oxide gas to a pressure of 20 mmHg. I then inserted an 11 mm trocar under direct vision. I then injected through and through the pubic hairline, made a small incision and inserted a 5 mm trocar here under direct vision. I identified the inferior epigastric arteries on the left side, went lateral to these and injected through and through with ropivacaine. Once again I placed a small 5 mm trocar under direct vision. The ovary was visualized and freed from the pelvis. I then made a small drill hole into the ovary and drained the fluid from the ovary. I then further opened up the ovarian cyst and using traction and countertraction I removed most of the cyst wall. It was coming out in small pieces. At the end of the procedure I had removed about 90% of the entire cyst wall. The small pieces were sent to pathology. I then rinsed the cavity within the ovary with saline. There was a small amount of ooze from within the ovary and I placed a large piece of Surgicel in this defect. I then sprayed the ovary with Luis. The ovary was returned to the abdominal cavity and once again hemostasis was assured. I elected to wrap the ovary with another piece of Surgicel. Hemostasis was once again assured. I left approximately 100 cc of saline within the pelvis. We then injected 30 cc of ropivacaine into the pelvis as well. The secondary trochars were removed under direct vision and the sites were hemostatic. The gas was letter the abdomen and the primary trocar and camera were removed together. No bowel was seen to follow. The 5 mm trocar sites were closed with subcuticular 4-0 Monocryl suture. The 11 mm trocar site was closed first deeply with [id number] 2-0 Vicryl suture followed by subcuticular 4-0 Monocryl suture to close the skin. Sterile dressings were applied. She tolerated the procedure well and was taken to the recovery room in excellent condition. All sponge, instrument and needle counts were correct. The estimated blood loss was less than 100 cc. Condition: stable Disposition: PACU Specimens:: Fragments of endometrial cyst wall Complications:: None
--- NOTE | 2022-07-17 10:22 | EXP.ANES.I ---
[facility] Anesthesia Record Part I Anesthesia Record I Intake, IV Amount: 1,000 Estimated blood loss (mL): 99 Urine output (mL): 100 Blood Pressure: 120/73 SaO2: 96 Pulse Rate: 86 Respiratory Rate: 18 Temperature: 97 F Patient is:: Drowsy and Stable Stable to PACU at:: 10:10
--- NOTE | 2022-07-17 10:48 | SUR.PHASEI ---
1040- detailed report called to bibiana gramajo in post op 1041- pt left with bibiana gramajo in post op in stable condition. All VSS, dressings CDI, and bed rails up/lowest position
--- NOTE | 2022-07-17 12:23 | EXP.ANES.II ---
[facility] Anesthesia Record Part II Anesthesia Record Part II Discharge Time: 10:40 Destination: Surgical Day Care (OP Surgery) PACU nurse assessment reviewed?: Yes Patient Condition:: Good Anesthesia Complications:: None Swallowing reflex intact?: Yes Cyanosis?: No Blood Pressure: 125/85 Pulse Rate: 90 Temperature: 97.1 F Mental Status: Alert & Oriented Pain level:: 4 Nausea and/or vomitting:: None Intake, IV Amount: 0
== END 2022-07-17 11:30 | disposition home or self-care (01) ==
PROVIDERS: Anesthesiology; PCP Family Medicine; Visit Provider Nurse Practitioner Obstetrics & Gynecology
PROC: (CPT 49320; principal; 2022-07-17 08:45)
DX: Z79.899 Other long term (current) drug therapy; N83.01 Follicular cyst of right ovary
CPT/HCPCS: 58662; 81025; 96374; J2405

== ENCOUNTER 2023-01-14 12:27 | Emergency (ER) | payer BC, SELFPAY ==
[2023-01-14 12:40] VITALS: BP 130/75; PULSE 87; RESP 18; TEMP 37.1; O2SAT 98; BMI 41.9
[2023-01-14 12:57] LABS: UTC Strep Screen (Rapid) Negative (Negative)
--- NOTE | 2023-01-14 13:03 | EXP.UTC ---
Discharge Plan Disposition Patient Disposition: Home, Self-Care Condition: Good Prescriptions Prescriptions: New amoxicillin-pot clavulanate 875-125 mg Tablet 1 tab PO Q12H Qty: 20 0RF fluticasone propionate [Flonase Allergy Relief] 50 mcg/actuation spray,suspension 1 - 2 spray intranasal DAILY Qty: 16 0RF Rx Instructions: administer into each nostril No Action dextroamphetamine-amphetamine [Adderall] 30 mg Tablet 30 mg PO DAILY esomeprazole magnesium [Nexium] 20 mg Capsule,Delayed Release(Dr/Ec) 20 mg PO DAILY escitalopram oxalate [Lexapro] 20 mg Tablet 20 mg PO DAILY Referrals Follow up/Referrals: Martínez Olson [Primary Care Provider] - See instructions Activity Restrictions/Add. Instructions Additional Instructions/Restrictions: *Monitor Temp, Over the counter Motrin or Tylenol as directed/as needed Tylenol every 4 hours and Motrin every 6 hours (as long as your family doctor has told you that you can take it) for fever or pain. and straight to ER if unable to lower temp less than 101.0 after medication given *Warm salt water gargles may help to soothe the throat *Throat Lozenges? *Warm fluids like tea with honey may help to soothe the throat? *Sleep elevated *Humidifier/Vaporizer *Take medication as prescribed Your throat swab was sent for culture. Those results are typically sent to your primary care. Be sure to follow up in 2-3 days with your family doctor/primary care physician if no improvement so they can review those result and treat if necessary. If you don?t have a primary care doctor, I recommend you get one but in the mean time, you will have to return to a walk in clinic Follow up IMMEDIATELY for new or worsening symptoms or no Noticeable improvement over the next 48-72 hours. 911 for difficulty breathing or swallowing Clinical Impressions Clinical Impression: Sinusitis Instructions Patient Instructions: DI for Sinusitis, Sinusitis Discharge ED Provider: Jennifer Zaragoza [facility] [place] HPI General Stated complaint: Scratchy throat Mode of Arrival: Ambulatory Source of Information: Patient Limitations: No Limitations Time Seen by Provider: 01/14/23 13:03 Description of Symptoms (Recalled from Triage Doc. by RN): PATIENT C/O SINUS PRESSURE, COUGH, SORE THROAT, RIGHT EAR PAIN AND CONGESTION X 1 WEEK HEENT Symptoms (Recalled from RN notes): Yes Resp Symptoms (Recalled from RN notes): Yes Skin Symptoms (Recalled from RN notes): No MS Symptoms (Recalled from RN notes): No Functional Status (Recalled from RN notes): WNL History of Present Illness Provider Complaint: Patient states that for the last week she has been having sinus pain and pressure, sore throat cough and pain in her right ear States that she feels like she is having drainage in the back of her throat trying to move into her chest area Related Data Home Medications Medication Instructions Recorded Confirmed dextroamphetamine-amphetamine 30 30 mg PO DAILY ADHD 01/14/23 01/14/23 mg tablet (Adderall) escitalopram oxalate 20 mg tablet 20 mg PO DAILY Anxiety 01/14/23 01/14/23 (Lexapro) esomeprazole magnesium 20 mg 20 mg PO DAILY Acid reflux 01/14/23 01/14/23 capsule,delayed release (Nexium) Previous Rx's Medication Instructions Recorded amoxicillin 875 mg-potassium 1 tab PO Q12H #20 tabs 01/14/23 clavulanate 125 mg tablet fluticasone propionate 50 1 - 2 spray intranasal DAILY #16 01/14/23 mcg/actuation nasal grams spray,suspension (Flonase Allergy Relief) Allergies Allergy/AdvReac Type Severity Reaction Status Date / Time No Known Allergies Allergy Verified 07/31/22 13:59 Worker's Comp Is this a Worker's Comp case?: No [facility] Disclaimer: The information contained in this section may have been updated after the patient was seen, as this information can be updated by other users. Medical History (Updated 01/14/23 @ 13:13 by Nathalie Monroy
[2023-01-14 13:08] VITALS: BP 130/75; PULSE 87; RESP 18; TEMP 37.1; O2SAT 98
== END 2023-01-14 13:16 | disposition home or self-care (01) ==
PROVIDERS: Emergency Provider Nurse Practitioner; PCP Family Medicine
DX: J01.90 Acute sinusitis, unspecified (principal); R07.0 Pain in throat; Z87.891 Personal history of nicotine dependence
CPT/HCPCS: 87880; 99212; 99214; G0463

== ENCOUNTER 2023-06-28 11:41 | Emergency (ER) | payer BC, SELFPAY ==
[2023-06-28 11:50] VITALS: BP 108/71; PULSE 83; RESP 18; TEMP 37.2; O2SAT 97; BMI 29.0
[2023-06-28 12:01] LABS: UTC Strep Screen (Rapid) Negative (Negative)
--- NOTE | 2023-06-28 12:04 | EXP.UTC ---
Discharge Plan Disposition Patient Disposition: Home, Self-Care Condition: Good Prescriptions Prescriptions: New azithromycin [azithromycin] 250 mg tablet 250 mg PO DIRECTED Qty: 6 0RF Rx Instructions: Take two (2) tablets on day #1, then one (1) tablet day #2 thru #5 fluticasone propionate [fluticasone propionate] 50 mcg/actuation spray,suspension 1 spray intranasal DAILY Qty: 9.9 0RF Referrals Follow up/Referrals: Martínez Olson [Primary Care Provider] - See instructions Activity Restrictions/Add. Instructions Additional Instructions/Restrictions: Start antibiotic patient to take as ordered for a full length of time even if you feel better. Sinus infections do not get better overnight. It may take 2-3 days to notice much improvement so be sure to use conservative measures as discussed for symptoms. Flonase 1 spray each nostril daily to help with nasal congestion, sinus and ear pressure/information Increase fluids Humidifier/vaporizer as needed Tylenol and ibuprofen as needed for fever or pain. If symptoms do not improve or get worse return or be seen in the ER Follow-up with primary care this week Clinical Impressions Clinical Impression: Sinusitis Qualifiers: Sinusitis location: maxillary Chronicity: acute Recurrence: non-recurrent Qualified Code(s): J01.00 - Acute maxillary sinusitis, unspecified Instructions Patient Instructions: DI for Sinusitis Discharge ED Provider: Rebecca ([facility] General Stated complaint: sore throat, runny nose Mode of Arrival: Ambulatory Source of Information: Patient Limitations: No Limitations Time Seen by Provider: 06/28/23 12:05 Description of Symptoms (Recalled from Triage Doc. by RN): sore throat, runny nose, and body aches HEENT Symptoms (Recalled from RN notes): Yes Resp Symptoms (Recalled from RN notes): No Skin Symptoms (Recalled from RN notes): No MS Symptoms (Recalled from RN notes): No Functional Status (Recalled from RN notes): n/a History of Present Illness Provider Complaint: 23 yr old female presents for sore throat, green nasal drainage,sinus pressure and drainage Related Data Previous Rx's Medication Instructions Recorded azithromycin 250 mg tablet 250 mg PO DIRECTED #6 tabs 06/28/23 fluticasone propionate 50 1 spray intranasal DAILY #9.9 mL 06/28/23 mcg/actuation nasal spray,suspension Allergies Allergy/AdvReac Type Severity Reaction Status Date / Time No Known Allergies Allergy Verified 06/28/23 11:56 Worker's Comp Is this a Worker's Comp case?: No [facility] Disclaimer: The information contained in this section may have been updated after the patient was seen, as this information can be updated by other users. Medical History , [employer]) Eczema History of COVID-19 History of gastroesophageal reflux (GERD) PCOS (polycystic ovarian syndrome) Urinary tract infection Surgical History , [employer]) H/O ovarian cystectomy History of appendectomy History of cholecystectomy History of tonsillectomy Family History , [employer]) Family history of Alzheimer's disease Family history of diabetes mellitus type II Father Social History , [employer]) Smoking Status: Former smoker alcohol intake: current substance use type: denies use current occupational status: employed Travel in the last 8 weeks: None household members: family housing: house do you feel safe at home: Yes victim of physical abuse: No victim of emotional abuse: No victim of sexual abuse: No would you like helpful sources: No ROS Obtained: Yes All systems reviewed & no additional complaints except as documented Constitutional Constitutional: Reports system reviewed and no additional complaints, except as documented, Report
[2023-06-28 12:29] VITALS: BP 108/71; PULSE 83; RESP 18; TEMP 37.2; O2SAT 97
== END 2023-06-28 12:29 | disposition home or self-care (01) ==
PROVIDERS: Emergency Provider Nurse Practitioner Family; PCP Family Medicine
DX: J01.00 Acute maxillary sinusitis, unspecified (principal); E28.2 Polycystic ovarian syndrome; L30.9 Dermatitis, unspecified; Z87.891 Personal history of nicotine dependence
CPT/HCPCS: 87880; 99212; 99214; G0463

== ENCOUNTER 2024-04-02 10:18 | Outpatient (CLI) | payer BC, SELFPAY ==
--- NOTE | 2024-04-02 10:22 | US_ITS ---
PROCEDURE: US TRANSVAGINAL CLINICAL INDICATION: AUB COMPARISON: US US TRANSVAGINAL from 07/10/2022 FINDINGS: Transvaginal sonographic images of the pelvis were obtained. UTERUS: 6.4cm x 3.9 cmx 3.0cm with a combined endometrial thickness of 8mm. The endometrium appears trilaminar. There are multiple small nabothian cysts in the cervix. LEFT OVARY: 3.7 cmx3.1cmx2.1cm with a volume of 12.4ml. The left ovary appears polycystic with multiple small peripheral follicle. RIGHT OVARY: 4.1cmx 2.1cmx2.0cm with a volume of 8.9ml. The right ovary appears polycystic with multiple small peripheral follicles. Both ovaries are seen and appear polycystic. Doppler flow to both ovaries are seen. There is no fluid in the cul-de-sac. IMPRESSION: 1. Anteverted uterus normal in shape and size. The endometrium appears normal and trilaminar. 2. Both ovaries are seen and appear polycystic. 3. There is good Doppler flow to both ovaries. 4. No fluid in the cul-de-sac. Dictated by: Kory Bah MD 04/03/2024 07:59 Kory Bah MD in OV 04/03/2024 07:59
[2024-04-02 10:56] LABS: Eosinophils # 0.1 K/mm3 (0.0-0.4); Eosinophils % 1.4 % (0.1-12.0); Lymphocytes # 1.5 K/mm3 (0.7-4.5); Lymphocytes % 33.3 % (10-50); Mean Corpuscular HGB Conc 32.6 g/dL (31.8-35.4); Mean Corpuscular Volume 95.1 fl (81-99); Mean Platelet Volume 7.4 fl (7.4-10.4); Monocytes # 0.2 K/mm3 (0.1-1.0); Monocytes % 4.4 % (1.7-9.3); Neutrophils # 2.8 K/mm3 (1.8-7.8); Platelet Count 203 K/mm3 (142-424); Red Blood Count 4.84 M/mm3 (4.20-5.40); Red Cell Distribution Width 12.4 % (11.5-17.5); White Blood Count 4.6 K/mm3 (4.8-10.8)
[2024-04-02 11:43] LABS: Albumin Level 4.6 g/dl (3.5-5.0); Chloride 105 mmol/L (98-107); Sodium 139 mmol/L (136-145)
[2024-04-02 11:44] LABS: Potassium 4.1 mmoL/L (3.5-5.1)
[2024-04-02 11:46] LABS: Alanine Aminotransferase 16 U/L (12-78); Albumin/Globulin Ratio 1.6 (1.1-1.8); Alkaline Phosphatase 73 U/L (38-126); Anion Gap 9.1 mEq/L (5-15); Aspartate Amino Transferase 21 U/L (14-36); Bilirubin,Total 1.1 mg/dl (0.2-1.3); Blood Urea Nitrogen 10 mg/dl (7-17); Carbon Dioxide 29 mmol/L (22.0-30.0); Estimated Glomerular Filt Rate 102 ml/min (>60); GFR (African American) 123 ML/MIN (>60); Globulin 2.8 g/dL (1.3-3.2); Total Protein,Serum 7.4 g/dl (6.3-8.2)
[2024-04-02 11:47] LABS: Calcium 9.2 mg/dl (8.4-10.2); Glucose 94 mg/dl (74-100); Glucose,Fasting 94 mg/dl (74-100)
[2024-04-02 12:19] LABS: Thyroid Stimulating Hormone 1.96 uIU/mL (0.465-4.68)
[2024-04-02 15:02] LABS: Hemoglobin A1C 4.8 % (4.0-6.0)
[2024-04-03 08:55] LABS: Estradiol 33.2 pg/mL (.); FSH 4.6 mIU/mL (.); LH 20.8 mIU/mL (.); Progesterone 0.1 ng/mL (.); Prolactin 17.3 ng/mL (4.8-33.4); Testosterone,Total 31 ng/dL (13-71)
== END 2024-04-02 23:59 | disposition home or self-care (01) ==
LOC: RAD 10:19
PROVIDERS: PCP Family Medicine; Visit Provider Obstetrics & Gynecology
DX: N93.9 Abnormal uterine and vaginal bleeding, unspecified (principal); R10.30 Lower abdominal pain, unspecified
CPT/HCPCS: 36415; 76830; 80050; 80053; 82670; 82947; 83001; 83002; 83036; 84144; 84146; 84403; 84443; 85025

== ENCOUNTER 2024-04-28 10:44 | Outpatient (CLI) | payer BC, SELFPAY ==
--- NOTE | 2024-04-28 10:52 | FL_ITS ---
FINAL REPORT CLINICAL HISTORY: PCOS, check tubes FT :19 DAP 223.09 FINDINGS: HSG HISTORY: PCOS, check fallopian tubes. PROCEDURE: Fluoroscopy was provided to the clinical service for HSG. Contrast was injected by the clinical service. Spot films were performed. A total of 10 cine runs were saved. FINDINGS: There is peritoneal spillage of contrast noted. Fluoroscopy time: 19 seconds Radiation dose in Reference air Kerma: 14 mGy IMPRESSION: Spillage of contrast into the peritoneum. Reviewed, Interpreted and Dictated by Derrell Grimm III, MD Transcribed by Bertha Sumner PA-C Authenticated and [facility]
--- NOTE | 2024-04-28 11:47 | HMH.PROCNOTE ---
[facility] Procedure Note Date: 04/28/24 Time: 11:30 Procedure Note:: Findings: bilateral patent fallopian tubes without hydrosalpinx. Unicornuate uterus Patient was positioned in the dorsal lithotomy position. Speculum was inserted. Cervix and vagina was cleansed with Hibiclens. Tenaculum was placed on anterior lip of the cervix. 40 cc of contrast was drawn up into a syringe and attached to the Jesus[facility] HSG cannula. Contrast was flushed through cannula to remove air bubbles and ensure patency. Cannula was then inserted into the cervix. Fluoroscopy was initiated with 10 cc of contrast injected into the endometrial cavity. Fluoroscopy demonstrated contrast immediately flowing from endometrial cavity through bilateral fallopian tubes revealing patent bilateral fallopian tubes. An additional 15mL of contrast was injected revealing a suspected unicornuate uterus. Cannula was removed from the cervix. Tenaculum was removed from the cervix. Small amount of bleeding from tenaculum sites noted but pt in significant discomfort and given small bleeding will become hemostatic with pressure from vaginal parrish. Speculum removed from the vagina. Discussed results and [facility] referral with pt and spouse, they both voiced understanding.
[2024-04-28] MEDS: IOPAMIDOL-370 (76%);100ML BOTTLE 45 ML IV (11:49)
== END 2024-04-28 23:59 | disposition home or self-care (01) ==
LOC: RAD 10:46
PROVIDERS: Visit Provider Obstetrics & Gynecology
DX: E28.2 Polycystic ovarian syndrome (principal); N93.9 Abnormal uterine and vaginal bleeding, unspecified; N97.9 Female infertility, unspecified
CPT/HCPCS: 74740; Q9967

== ENCOUNTER 2024-05-04 08:52 | Outpatient (CLI) | payer BC, SELFPAY ==
[2024-05-04 16:30] LABS: Basophils # 0.1 K/mm3 (0-0.2); Basophils % 0.9 % (0.1-2.0); Eosinophils # 0.1 K/mm3 (0.0-0.4); Eosinophils % 1.1 % (0.1-12.0); Hematocrit 46.4 % (37.0-47.0); Lymphocytes # 1.8 K/mm3 (0.7-4.5); Lymphocytes % 34.8 % (10-50); Mean Corpuscular HGB Conc 32.4 g/dL (31.8-35.4); Mean Corpuscular Hemoglobin 30.4 pg (27.0-31.2); Mean Corpuscular Volume 93.7 fl (81-99); Mean Platelet Volume 8.1 fl (7.4-10.4); Monocytes # 0.2 K/mm3 (0.1-1.0); Monocytes % 4.2 % (1.7-9.3); Platelet Count 236 K/mm3 (142-424); Red Blood Count 4.96 M/mm3 (4.20-5.40); Red Cell Distribution Width 12.9 % (11.5-17.5); White Blood Count 5.1 K/mm3 (4.8-10.8)
== END 2024-05-04 23:59 | disposition home or self-care (01) ==
LOC: LAB.DROPOF 05-06 08:53
PROVIDERS: PCP Obstetrics & Gynecology; Visit Provider Obstetrics & Gynecology
DX: N93.9 Abnormal uterine and vaginal bleeding, unspecified (principal)
CPT/HCPCS: 85025